=== PATIENT | male | born 1970 ===

== ENCOUNTER 2020-07-17 08:41 | Inpatient (IN) | payer MEDICAID ==
[2020-07-17] VITALS (8 sets, daily range): BP systolic 106–136; BP diastolic 69–89
[~2020-07-17] VITALS: Ht 190.5 cm; Wt 121.5 kg
[~2020-07-17 08:41] MED LIST: KETAMINE HCL 10 ML ONE; LIDOCAINE 2% (LOCAL ANESTH.) PF 5ml SDV ONE; MIDAZOLAM HCL 1MG/1ML-2 ML VIAL ONE; MORPHINE SULF(PF) 0.5MG/ML 10ML VIAL ONE; ONDANSETRON HCL 4 MG/2 ML VIAL ONE; PROPOFOL 10 MG/ML 20 ML IV ONE; fentaNYL CITRATE 100 MCG/2 ML VL ONE
[2020-07-17] MEDS ORDERED: VANCOMYCIN HCL 1000 MG VL ONE (08:50)
[2020-07-17] MEDS ORDERED: ACETAMINOPHEN IV 100 ML IV ONE (08:50)
[2020-07-17] MEDS: CELECOXIB 100 MG CAP PO ONE ×2 (09:00→09:10)
[2020-07-17] MEDS: PREGABALIN CAPSULE 75 MG CAP PO ONE ×2 (09:00→09:10)
[2020-07-17] MEDS: ACETAMINOPHEN IV 1000 MG/100ML (10MG/ML) IV ONE ×2 (09:00→09:10)
[2020-07-17] MEDS ORDERED: VANCOMYCIN 1GM/250ML 250 ML IV ONE ×3 (09:00→22:00)
[2020-07-17] MEDS ORDERED: CELECOXIB 100 MG CAP ONE (09:11)
[2020-07-17] MEDS ORDERED: PREGABALIN CAPSULE 75 MG CAP ONE (09:11)
[2020-07-17] MEDS ORDERED: TRANEXAMIC ACID 20 ML ONE (09:15)
[2020-07-17] MEDS ORDERED: KETOROLAC TROMETH 30 MG/ML 1ML VIAL ONE (09:18)
[2020-07-17] MEDS ORDERED: BUPIVACAINE 0.5% P/F INJ 10 ML VIAL ONE (09:21)
[2020-07-17] MEDS ORDERED: TETRACAINE 1% INJ 2 ML VIAL IJ ONE (09:28)
[2020-07-17] MEDS: VANCOMYCIN HCL 1000 MG VL ONE ×2 (09:31→10:55)
[2020-07-17] MEDS ORDERED: NALOXONE HCL 0.4 MG/ML VIAL IV PRN (11:30)
[2020-07-17] MEDS ORDERED: OXYCODONE W/ ACETAMINOPHEN 5/325MG TABLET PO PRN ×2 (11:30)
[2020-07-17] MEDS ORDERED: ONDANSETRON HCL 4 MG/2 ML VIAL IV PRN ×3 (11:30)
[2020-07-17] MEDS ORDERED: NALBUPHINE HCL 10 MG/1ml INJECTION SUBCUT ONE (11:30)
[2020-07-17] MEDS ORDERED: BISACODYL 5 MG EC TAB PO PRN (11:30)
[2020-07-17] MEDS ORDERED: diphenhdrAMINE HCL 50 MG/1 ML VL IV PRN (11:30)
[2020-07-17] MEDS: LACTATED RINGER'S 1,000 ML IV SCH ×2 (11:30→15:34)
[2020-07-17] MEDS ORDERED: DexAMETHasone SOD PHOS 10MG/1ML VIAL INJ IV PRN (11:30)
[2020-07-17] MEDS ORDERED: NITROGLYCERIN 0.4 MG SL TAB SL PRN (11:30)
[2020-07-17] MEDS ORDERED: ACETAMINOPHEN 325 MG TAB PO PRN (11:30)
[2020-07-17] MEDS ORDERED: HYDROmorphone HCL 2 MG/ML VL IV PRN (11:30)
[2020-07-17] MEDS ORDERED: KETOROLAC TROMETH 30 MG/ML 1ML VIAL IV PRN (11:30)
[2020-07-17] MEDS ORDERED: MORPHINE SULF INJ 2 MG/ML SYRINGE 1ML IV PRN (11:30)
[2020-07-17] MEDS ORDERED: ENOXAPARIN SOD 40 MG/0.4 ML SYRINGE SC ONE (12:15)
[2020-07-17] MEDS ORDERED: DOCUSATE SOD 100 MG CAP PO ONE (12:15)
[2020-07-17] MEDS: ceFAZolin 1GM 2 GM in D5W 5% 100 ML IV SCH ×2 (13:47→15:35)
[2020-07-17] MEDS: DOCUSATE SOD 100 MG CAP PO SCH (21:56)
[2020-07-18] VITALS (16 sets, daily range): BP systolic 101–133; BP diastolic 58–94
[2020-07-18] MEDS: ceFAZolin 1GM 2 GM in D5W 5% 100 ML IV SCH (05:54)
[2020-07-18 07:11] LABS: Hematocrit 38.1 % (41.0-53.0); Hemoglobin 12.9 g/dL (13.5-17.5)
[2020-07-18 07:32] LABS: Calcium 8.1 mg/dL (8.5-10.1); Potassium 3.9 mmol/L (3.5-5.1)
[2020-07-18 07:37] LABS: Bilirubin, Total 1.3 mg/dL (0.2-1.0); Total Protein 5.6 g/dL (6.4-8.2)
[2020-07-18] MEDS: ENOXAPARIN SOD 40 MG/0.4 ML SYRINGE SC SCH (09:22)
[2020-07-18] MEDS: DOCUSATE SOD 100 MG CAP PO SCH ×2 (09:22→21:58)
[2020-07-18] MEDS: LACTATED RINGER'S 1,000 ML IV SCH ×2 (16:24→17:05)
[2020-07-19] MEDS: LACTATED RINGER'S 1,000 ML IV SCH ×2 (03:30→12:18)
[2020-07-19 05:00] VITALS: BP 115/65
[2020-07-19 06:04] LABS: Hematocrit 34.6 % (41.0-53.0); Hemoglobin 11.9 g/dL (13.5-17.5)
[2020-07-19 09:00] VITALS: BP 135/71
[2020-07-19] MEDS: DOCUSATE SOD 100 MG CAP PO SCH (11:15)
[2020-07-19] MEDS: ENOXAPARIN SOD 40 MG/0.4 ML SYRINGE SC SCH (11:16)
[2020-07-19 13:00] VITALS: BP 130/73
== END 2020-07-19 14:15 | disposition home health service (06) | DRG 301 ==
LOC: SUR 08:41 → TELE 11:21 → TELE-WESTW 16:29
PROVIDERS: ADMIT Orthopaedic Surgery Adult Reconstructive Orthopaedic Surgery; ATTEND Internal Medicine
PROC: 8E0Y0CZ Robotic Assisted Procedure of Lower Extremity, Open Approach (ICD-10-PCS; 2020-07-17)
PROC: 0SRB06Z Replacement of Left Hip Joint with Oxidized Zirconium on Polyethylene Synthetic Substitute, Open Approach (ICD-10-PCS; principal; 2020-07-17 09:34)
DX: M16.12 Unilateral primary osteoarthritis, left hip (principal); E66.01 Morbid (severe) obesity due to excess calories; Z68.32 Body mass index [BMI] 32.0-32.9, adult; Z20.822 Contact with and (suspected) exposure to COVID-19; Z88.0 Allergy status to penicillin; Z96.642 Presence of left artificial hip joint
CPT/HCPCS: 36415; 72170; 80053; 85014; 85018; 86850; 86900; 86901; A4565; C1713; C1776; G0378; J0131; J0690; J1885; J2001; J2250; J2405; J2704; J3490; J7060